=== PATIENT | female | born 1980 | race Caucasian/White ===

== ENCOUNTER 2021-03-18 17:13 | Day surgery (SDC) | payer OTHER ==
[~2021-03-18] VITALS: Ht 170.2 cm; Wt 72.0 kg
[2021-03-18 18:08] VITALS: BP 109/71
[2021-03-18] MEDS ORDERED: BUPIVACAINE/PF 0.25% ONE (19:00)
[2021-03-18] MEDS ORDERED: EPINEPHRINE 1 MG/ML, 1ML ONE (19:01)
[2021-03-18] MEDS ORDERED: OXYTOCIN 10 UNITS/ML, 1ML ONE ×2 (19:01→19:28)
[2021-03-18] MEDS ORDERED: METHYLERGONOVINE 0.2 MG/ML IM ONE ×2 (19:01→19:28)
[2021-03-18] MEDS ORDERED: SILVER NITRATE STICK TP ONE (19:01)
[2021-03-18] MEDS ORDERED: MISOPROSTOL 200 MCG TABLET ONE ×2 (19:01→19:28)
[2021-03-18] MEDS ORDERED: BALANCED SALT OPHTH IRRIG SOLN 18ML ONE (19:27)
[2021-03-18] MEDS ORDERED: FENTANYL PF 100 MCG/2ML ONE (19:58)
[2021-03-18] MEDS ORDERED: MIDAZOLAM 1 MG/ML, 2ML ONE (19:58)
[2021-03-18] MEDS ORDERED: CEFAZOLIN 1,000 MG ONE (20:20)
[2021-03-18] MEDS ORDERED: DEXAMETHASONE 4 MG/ML, 1ML ONE (20:20)
[2021-03-18] MEDS ORDERED: PROPOFOL 10 MG/ML, 20ML ONE (20:20)
[2021-03-18] MEDS ORDERED: ONDANSETRON 2MG/ML, 2ML ONE (20:20)
[2021-03-18] MEDS ORDERED: ACETAMINOPHEN 325 MG TABLET PO PRN (20:30)
[2021-03-18] MEDS ORDERED: FENTANYL PF 100 MCG/2ML IV PRN (20:30)
[2021-03-18] MEDS ORDERED: EPHEDRINE 50 MG/ML, 1ML IVPush PRN (20:30)
[2021-03-18] MEDS ORDERED: hydrALAzine 20 MG/ML, 1ML IV PRN (20:30)
[2021-03-18] MEDS ORDERED: ONDANSETRON 2MG/ML, 2ML IVPush PRN (20:30)
[2021-03-18] MEDS ORDERED: LABETALOL 5MG/ML, 20ML IV PRN (20:30)
[2021-03-18] MEDS ORDERED: OXYcodone 5 MG/5 ML ORAL.SOL UDC PO PRN (20:30)
[2021-03-18] MEDS ORDERED: PROMETHAZINE 25 MG/ML, 1ML IVPush PRN (20:30)
[2021-03-18] MEDS ORDERED: HYDROmorphone 1 MG/ML, 1ML INJ IVPush PRN (20:30)
[2021-03-18] MEDS ORDERED: OXYC1TAB14 PO (20:42)
[2021-03-18] MEDS ORDERED: IBUP-1222 PO (20:43)
[2021-03-18] MEDS ORDERED: DOCU-131 PO (20:43)
== END 2021-03-18 23:35 | disposition home or self-care (01) ==
LOC: OR 17:13 → 4NE 17:45 → OR 23:35
PROVIDERS: ATTEND Obstetrics & Gynecology
DX: O02.1 Missed abortion (principal); Z20.822 Contact with and (suspected) exposure to COVID-19; Z79.899 Other long term (current) drug therapy; Z88.1 Allergy status to other antibiotic agents; Z98.890 Other specified postprocedural states
CPT/HCPCS: 36415; 59820; 86850; 86900; 87635; 88305; J0171; J0690; J1100; J2210; J2250; J2405; J2590; J2704; J3010; G0378